=== PATIENT | male | born 2000 | race Hispanic/Latino ===

== ENCOUNTER 2022-03-12 12:20 | Emergency (ER) | payer OTHER ==
[~2022-03-12] VITALS: Ht 165.1 cm; Wt 52.2 kg
[2022-03-12] MEDS ORDERED: FAMOTIDINE 20 MG/2 ML VIAL IV STA (13:24)
[2022-03-12] MEDS ORDERED: SODIUM CHLORIDE 0.9% 1000ML 1,000 ML IV SCH (13:30)
[2022-03-12] MEDS ORDERED: DICYCLOMINE HCL 10 MG CAP PO ONE (13:30)
[2022-03-12] MEDS ORDERED: DICYCLOMINE HCL 10 MG CAP ONE (13:36)
[2022-03-12] MEDS ORDERED: SODIUM CHLORIDE 0.9% 1000ML 1,000 ML ONE (13:37)
[2022-03-12] MEDS ORDERED: FAMOTIDINE 20 MG/2 ML VIAL IV ONE (13:37)
[2022-03-12] MEDS ORDERED: IOPAMIDOL 370 MG/ML 100 ML INFUS..BTL INJ ONE (14:12)
[2022-03-12] MEDS ORDERED: LEVSIN-SL0.125 MG SL (16:25)
[2022-03-12] MEDS ORDERED: FAMOTIDINE40 MG PO (16:35)
== END 2022-03-12 16:39 | disposition home or self-care (01) ==
LOC: FSED 12:39
DX: R10.31 Right lower quadrant pain (principal); K76.89 Other specified diseases of liver; F17.210 Nicotine dependence, cigarettes, uncomplicated
CPT/HCPCS: 74177; 96374; 99283; J7030; Q9967

== ENCOUNTER 2022-03-26 12:23 | Emergency (ER) | payer OTHER ==
[~2022-03-26] VITALS: Ht 165.1 cm; Wt 56.7 kg
[~2022-03-26 12:23] MED LIST: FAMOTIDINE40 MG PO; LEVSIN-SL0.125 MG SL
[2022-03-26] MEDS ORDERED: METHYLPREDNISOLONE SOD SUCC 125 MG/2ML VIAL IV ONE ×2 (13:00→14:00)
[2022-03-26] MEDS ORDERED: DIPHENHYDRAMINE HCL 25 MG CAP PO ONE ×2 (13:00→14:00)
[2022-03-26] MEDS ORDERED: METHYLPREDNISOLONE SOD SUCC 125 MG/2ML VIAL ONE (14:05)
[2022-03-26] MEDS ORDERED: DIPHENHYDRAMINE HCL 25 MG CAP ONE (14:06)
[2022-03-26] MEDS ORDERED: PREDNISONE20 MG PO (14:39)
[2022-03-26] MEDS ORDERED: FAMOTIDINE40 MG PO (14:41)
[2022-03-26] MEDS ORDERED: EPINEPHRIN0.3 MG/0.3 IM (14:47)
== END 2022-03-26 15:14 | disposition home or self-care (01) ==
LOC: FSED 13:43
DX: R60.0 Localized edema (principal); T78.40XA Allergy, unspecified, initial encounter; L29.9 Pruritus, unspecified
CPT/HCPCS: 99283; J2930

== ENCOUNTER 2022-05-01 21:23 | Emergency (ER) | payer OTHER ==
[~2022-05-01] VITALS: Ht 165.1 cm; Wt 56.7 kg
[~2022-05-01 21:23] MED LIST changes: +EPINEPHRIN0.3 MG/0.3 IM; +PREDNISONE20 MG PO
[2022-05-01] MEDS ORDERED: CEFTRIAXONE 1 GM VIAL IM ONE (22:00)
[2022-05-01] MEDS ORDERED: AZITHROMYCIN 250 MG TAB PO ONE (22:00)
[2022-05-01] MEDS ORDERED: VALTREX1000 MG PO (22:16)
[2022-05-01] MEDS ORDERED: CEFDINIR300 MG PO (22:16)
[2022-05-01] MEDS ORDERED: DOXYCYCLINE HY100 MG PO (22:16)
[2022-05-01] MEDS ORDERED: LIDOCAINE HCL 1% LOCAL INJ 20 ML VIAL ONE (22:20)
[2022-05-01] MEDS ORDERED: AZITHROMYCIN 250 MG TAB ONE ×2 (22:20→22:22)
[2022-05-01] MEDS ORDERED: CEFTRIAXONE 1 GM VIAL ONE (22:20)
== END 2022-05-01 22:35 | disposition home or self-care (01) ==
LOC: FSED 21:31
DX: R31.9 Hematuria, unspecified (principal); N34.2 Other urethritis; B00.9 Herpesviral infection, unspecified; F17.210 Nicotine dependence, cigarettes, uncomplicated
CPT/HCPCS: 81003; 99283; J0696; J2001

== ENCOUNTER 2023-03-20 12:44 | Emergency (ER) | payer OTHER ==
[~2023-03-20] VITALS: Ht 165.1 cm; Wt 54.4 kg
[~2023-03-20 12:44] MED LIST changes: +CEFDINIR300 MG PO; +DOXYCYCLINE HY100 MG PO; +VALTREX1000 MG PO
[2023-03-20] MEDS ORDERED: ONDANSETRON HCL INJ 2MG/ML 2ML 2 MG/ML VIAL IV STA (13:09)
[2023-03-20] MEDS ORDERED: FAMOTIDINE 20 MG/2 ML VIAL IV STA (13:09)
[2023-03-20] MEDS ORDERED: SODIUM CHLORIDE 0.9% 1000ML 1,000 ML IV SCH (13:15)
[2023-03-20] MEDS ORDERED: ONDANSETRON ODT4 MG PO (14:03)
[2023-03-20] MEDS ORDERED: PEPCID20 MG PO (14:03)
[2023-03-20 14:14] VITALS: BP 136/90
== END 2023-03-20 14:14 | disposition home or self-care (01) ==
LOC: FSED 12:57
DX: R10.13 Epigastric pain (principal); R11.10 Vomiting, unspecified; R51.9 Headache, unspecified; F41.9 Anxiety disorder, unspecified; F17.210 Nicotine dependence, cigarettes, uncomplicated
CPT/HCPCS: 80048; 80076; 85025; 96374; 96376; 99283; J2405; J7030